=== PATIENT | female | born 1995 | race Caucasian/White ===

== ENCOUNTER 2016-04-16 18:03 | Observation (INO) ==
--- NOTE | 2016-04-16 18:33 | OB/GYN Progress Note ---
Date of Encounter: 04/16/16 Time of Encounter: 18:31 - Assessment and Plan (1) 37 weeks gestation of Current Visit: Yes Status: Acute Patient is a at 37 weeks here with lower back and pelvic pain. She is not regularly mary carmen on the monitor, her water has not broken and she has made no change. Baby looks very good on the monitor. Patient will be discharged home to follow up with her primary AUTOMOTIVE HEAVY MECHANIC. (2) Back pain affecting in third trimester Current Visit: No Status: Acute Subjective - Subjective Principal diagnosis: 37 week labor eval Interval history: Ms Light is a 20yo female at 37 weeks who presents with lower back and pelvic pain. Patient reports that today she has had cramping and pain in her lower back and pelvis. Pain is worse with walking or standing. She reports pressure and always feeling like she has to pee. She reports lots of mucous discharge this morning but no fluid loss. Reports good movement, SOB with walking, and chronic constipation. Yesterday she says that she didn't feel well and had lots of nausea and vomiting but that has resolved. Patient denies headache, vision changes, chest pain or burning with urination. Patient reports no complications with this . She was last seen in the office 04/13/16 and at that time she was 1cm dilated, 50% effaced. I examined this patient and my medical decision-making was reviewed with the CLIENT RETENTION SPECIALIST/PA/Advanced Practice Nurse/Resident Physician. I agree with the documented findings, disposition and treatment plan as described except to the extent set forth below. Antepartum ROS: movement normal, contractions, no loss of fluid, no vaginal bleeding Objective - Exam FHR: auscultation normal Auscultation: bilateral: normal Abdomen: Present: normal appearance, soft, gravid Cervical dilation: 1cm, posterior Cervix effacement: 50%
== END 2016-04-16 18:48 | disposition home or self-care (01) ==
LOC: 1NENULAB
PROVIDERS: ADMIT Obstetrics & Gynecology; ATTEND Obstetrics & Gynecology

== ENCOUNTER 2016-04-30 00:05 | Inpatient (IN) ==
[~2016-04-30 00:05] MED LIST: Famotidine 20 MG/2 ML VIAL IVP PRN; Metoclopramide 10 MG/2 ML VIAL IVP PRN; Ondansetron 4 MG/2 ML VIAL IVP PRN
--- NOTE | 2016-04-30 00:13 | OB/GYN History & Physical ---
Date of Encounter: 05/01/16 Time of Encounter: 00:09 Assessment and Plan (1) Breech presentation of fetus Status: Acute FHT monitoring NPO, IVF plan for Qualifiers: Fetus number: single or unspecified fetus Qualified Code(s): O32.1XX0 - Maternal care for breech presentation, not applicable or unspecified (2) 38 weeks gestation of Status: Acute History of Present Illness Chief complaint: contractions HPI: Ms. Light is a 20 year old female 38.6 week BRANDON 05/07/16 who presents c/ o of contractions. Pt states contractions started late afternoon/early this evening. At this time they were very irregular and spaced out. Since that time contractions started becoming more frequent. is complicated by breech presentation, which is confirmed by US. Pt denies vaginal discharge, bleeding, or loss of fluids. Dr. Jacobs pt, recieved care Past Med Surg Social Fam HX - Past Medical History Medical history: migraine Psychiatric history: anxiety - Past Surgical History Surgical History: no surgical history - Social History Smoking Status: Never smoker Smokeless Tobacco Status: No Alcohol use: none Drug use: none - Family History Mother Adopted: No Family Member Ethnicity: Non- Living Status: Still Living Hx Family Cardiac Disorders: Yes Hx Family Respiratory Disorders: No Hx Family Cancer: No Hx Family GI Disorders: No Hx Family Genitourinary Disorders: No Hx Family Endocrine Disorder: No Hx Family Musculoskeletal Disorders: No Hx Family Neuromuscular Disorders: No Hx Family Neurologic Disorders: No Hx Family HEENT Disorders: No Hx Family Autoimmune Disorders: No Hx Family Reproductive Disorders: No Hx Family Psychosocial Disorders: No Hx Family Medical Disorders: No Obstetrical History - Pregnancies : 1 Para: 0 - History/Complications History/Complications: breech presentation of current HepB - HIV - Treponema - Rubella, varicella immune screening- Medications and Allergies Qyn004/Iron Car/FA/Om3/Dha/Epa [One-A-Day 1 Dha Sfgl] 1 each PO DAILY 09/28/15 [History] Ondansetron ODT [Zofran ODT] 4 mg SL Q6HR PRN #8 tab.rapdis 12/06/15 [Rx] Zantac 150 mg PO DAILY 04/16/16 [History] Breast Pump [BREAST PUMP] 1 each .ROUTE AD #1 each 05/02/16 [Rx] Docusate [Colace] 100 mg PO BID #60 capsule 05/02/16 [Rx] Ibuprofen [Motrin] 600 mg PO Q6HR PRN #60 tablet 05/02/16 [Rx] Lanolin [Lansinoh] 1 appl TP TID PRN #0 oint...g. 05/02/16 [Rx] OxyCODONE/APAP 5/325 [Percocet 5/325 MG] 1 each PO Q4HR PRN #30 tablet 05/02/16 [Rx] Simethicone [Gas-X] 80 mg PO TID PRN #0 tab.chew 05/02/16 [Rx] Allergies azithromycin [From Zithromax] Adverse Reaction (Verified 04/30/16 01:34) Hives clarithromycin [From Biaxin] Adverse Reaction (Verified 04/30/16 01:34) Hives Review of System OB All systems PM: reviewed and no additional remarkable complaints except as stated Exam - Constitutional Constitutional: well developed, well nourished, no acute distress, average body habitus - HEENT HEENT: EOMI, Mucus Membranes Moist - Neck Neck exam: full ROM - Lungs Respiratory exam: CTAB - Cardiovascular Cardiovascular exam: RRR, +S1, +S2 - Abdomen Abdomen: Present: bowel sounds normal, gravid - Extremities Extremities exam: warm - Uterus Uterus exam: Present: normal size, normal contour Results Result Diagrams: 05/01/16 03:10 All other labs normal. - VTE Reasons for not Prescribing Prophylaxis: Treatment not Indicated - Low risk for VTE
[2016-04-30] MEDS ORDERED: Ringers Solution, Lactated 1,000 ML IVC SCH ×2 (00:15→05:45)
--- NOTE | 2016-04-30 00:34 | Anesthesia Evaluation PreOp ---
Date of Encounter: 04/30/16 Time of Encounter: 00:32 - Past History Planned Operation: Primary Csection Cardiac History: Denies any Significant Hx Pulmonary History: Denies Any Significant HX BOWLING BALL MARKER History: Denies Any Significant HX Other Medical History: GERD (Treats with zantac and tums PRN) Anesthesia History: No Prior Anesthetic Complications, Past Anesthesia (wisdom teeth extraction) : Yes Alcohol Use: none Drug use: none Medications and Allergies Zmm129/Iron Car/FA/Om3/Dha/Epa [One-A-Day 1 Dha Sfgl] 1 each PO DAILY 09/28/15 [History] Ondansetron ODT [Zofran ODT] 4 mg SL Q6HR PRN #8 tab.rapdis 12/06/15 [Rx] Zantac 150 mg PO DAILY 04/16/16 [History] Allergies azithromycin [From Zithromax] Adverse Reaction (Verified 12/06/15 19:55) Hives clarithromycin [From Biaxin] Adverse Reaction (Verified 12/06/15 19:55) Hives - Meds/Allergy Pre-op Review Medications Reviewed: Yes Allergies Reviewed: Yes Beta Blockers on Current Med List: No Anesthesia Exam BP 126/81 P 104 R 16 T 98.3 Height: 5'7" Weight: 76kg NPO (# of Hours): 4 Pain Scale: 2 Pain Scale Used: Numeric (1 - 10) - HEENT Pupil (Motor): Pupils equal Mallampati: II Teeth: Normal Oral Opening: Greater than 3 - BOWLING BALL MARKER BOWLING BALL MARKER Motor: Normal RUE, Normal LUE, Normal RLE, Normal LLE, Normal Face BOWLING BALL MARKER Sensory: Normal: RUE, LUE, RLE, LLE, Face - Cardiac Rhythm: Regular Murmur: None JVD: No Carotid Bruit: No - Pulmonary Breath Sounds: bilateral Clear Respiratory Effort: Symmetrical Anesthesia Assess/Plan ASA Score: 2 Modified Orly Scale for Level of Consciousness: Cooperative, oriented, and tranquil Anesthetic Plan: Regional Autologous Blood: Yes Monitoring Plan: Standard Monitors Recovery Plan: PACU
[2016-04-30] MEDS ORDERED: *HR* Morphine Sulfate/PF 5 MG/10 ML AMPUL ONE (04:47)
[2016-04-30] MEDS ORDERED: Dexamethasone 4 MG/ML VIAL ONE (05:09)
[2016-04-30] MEDS ORDERED: Ondansetron 4 MG/2 ML VIAL ONE (05:09)
[2016-04-30] MEDS ORDERED: Naloxone 0.4 MG/ML INJ IVP PRN ×3 (05:34→08:32)
[2016-04-30] MEDS ORDERED: *HR* HYDROmorphone (PF) 1 MG/ML SYRINGE IVP PRN (05:34)
[2016-04-30] MEDS ORDERED: *HR* Promethazine 25 MG/ML VIAL IVP PRN ×2 (05:34→08:32)
--- NOTE | 2016-04-30 05:34 | Anesthesia Procedures ---
Date of Encounter: 04/30/16 Time of Encounter: 04:50 Procedures: Anesthesia - Epidural/Spinal Patient ID/Chart reviewed: Yes Patient examined: Yes OB Eval: Gestational age: 39 OB Eval: : 1 OB Eval: Hx Para: 0 OB Eval: Contractions: Non-stressed pattern Consent Obtained: Yes Site Prep: Aseptic Technique, Sterile prep and drape, Povidone-Iodine 1% Patient position: upright Local Anesthetic: Lidocaine 1% Amount of Local Anesthetic used: 3 Interspace Used: L4-L5 Loss of Resistance (JAY): No Blood: No CSF: Yes Paresthesia: No Spinal Needle Gauge: 25 Spinal Dose: Marcaine 0.75 1.6ml Morphine 250mcg Procedure: Spinal administration 1st pass in upright position without any immediate noted complications. VSS throughout. Vitals + FHT's: see anesthesia record
[2016-04-30] MEDS ORDERED: *HR* Meperidine 25 MG/ML SYRINGE IVP PRN (05:49)
[2016-04-30] MEDS ORDERED: *HR* Oxytocin 10 UNIT/ML VIAL IM ONE (05:52)
--- NOTE | 2016-04-30 06:10 | OB/GYN Procedure Note ---
Section - Date of procedure: 04/30/16 Preop diagnosis: breech, other (Labor) Post-op diagnosis: same Procedure: section, primary low transverse Surgeon: Daryl Andrew Estimated blood loss (cc): 300 Anesthesiologist: Vidal Boyce Agriculture Research Director: Grabiel Rao Anesthesia Type: Spinal section complications: none Disposition: PACU - (s) A Infant Delivery Date: 04/30/16 Delivery Time: 05:18 Presentation: breech Gender: Female Viability: Viable Pounds: 7 Ounces: 6 Gram Weight: 3.345 kg at 1 minute: 8 at 5 minutes: 9 Shoulder Dystocia: not encountered Specimens collected: cord blood Placenta: spontaneous Cord: 3 umbilical vessels, nuchal reduced - Narrative Narrative: Patient is a 20-year-old primigravida female at 39 weeks gestation presents with contractions every 3-4 minutes worsening in intensity. She denies bleeding or leakage of fluid. She has known breech infant which was confirmed this evening. She was quite uncomfortable with contractions and given that she was doing the weeks' gestation request of Dr. Winslow and proceed with a section. Questions were answered and consent was obtained. Description of procedure: Patient was taken operating room where anesthesia was administered. She was prepped and draped in usual sterile fashion. Bladder was drained of clear urine. Scalpel was used to make a Pfannenstiel skin incision which was sharply taken down the rectus fascia. Rectus fascia was incised midline and rectus fascial incision was extended bilaterally. Rectus muscles were divided and peritoneum was entered bluntly. Bladder blade was placed and bladder flap was developed from the uterine segment. Scalpel was used to make a low transverse uterine incision this was extended bluntly bilaterally. Embryo is ruptured to clear fluid. Infant was delivered from debbi breech presentation and arms and head flexed throughout delivery. Cord was clamped and cut and was handed to nursery personnel were Apgars were found to be 8 at 1 minute and 9 at 5 minutes the weight was 7 lbs. 6 oz. Placenta was delivered manually without difficulty. Uterine cavity was massaged of all residual tissue. Uterus was closed with 0 Vicryl in a running lock stitch. Second imbricating layer was placed for the first obtain hemostasis. Fascia was closed with 0 Vicryl in a running manner. Skin edges reapproximated with 4-0 Vicryl. All sponge and instrument counts are correct patient was taken recovery in good condition.
[2016-04-30] MEDS ORDERED: *HR* OxyCODONE/APAP 5/325 TABLET PO PRN (06:29)
[2016-04-30] MEDS ORDERED: Ibuprofen 400 MG TABLET PO PRN ×2 (06:29→08:32)
[2016-04-30] MEDS ORDERED: *HR* Morphine 2 MG/ML SYRINGE IVP PRN ×2 (06:29→08:32)
[2016-04-30] MEDS ORDERED: Ondansetron 4 MG/2 ML VIAL IVP PRN ×3 (06:29→08:32)
--- NOTE | 2016-04-30 06:39 | Anesthesia Evaluation Post Op ---
Date of Encounter: 04/30/16 Time of Encounter: 06:35 - Vital Signs Vital Signs: BP 117/62 P 83 R 18 Spo2 98 T 97.8 - Lungs Lungs: Clear Ascult./Percussion - Airway Airway: Non-obstructed - Cardiovascular Regular Rate - Mental Status Mental Status: Alert & Oriented, Answers Appropriately - Pain Pain Scale: 0 Pain Scale used: Numeric (1 - 10) - Nausea Vomiting Nausea Vomiting: Not Present - Hydration Hydration: NPO, Landeros catheter - Discharge PostOp Status: Transfer Patient to floor
[2016-04-30] MEDS ORDERED: Oxytocin 20 units/ LR 1000 mL 20 UNIT/1,000 ML BAG IVC ONE (07:34)
[2016-04-30 08:20] LABS: Basophils # 0.1 K/mcL (0.0-0.2); Basophils % 0.2 %; Eosinophils # 0.1 K/mcL (0.0-0.6); Eosinophils % 0.4 %; Hematocrit 38.2 % (35.3-44.9); Hemoglobin 11.7 g/dL (11.5-15.4); Immature Granulocytes % 2.2 % (0-4); Lymphocytes # 2.3 K/mcL (0.6-4.6); Lymphocytes % 11.6 %; Mean Corpuscular HGB Conc 30.6 g/dL (31.6-35.5); Mean Corpuscular Hemoglobin 26.1 pg (28.0-33.3); Mean Corpuscular Volume 85.3 fL (83.0-100.0); Mean Platelet Volume 11.5 fL (9.4-12.4); Monocytes # 1.9 K/mcL (0.0-1.3); Monocytes % 9.6 %; Neutrophils # 15.3 K/mcL (1.6-8.9); Platelet Count 233 K/mcL (140-400); Red Blood Count 4.48 M/mcL (3.82-4.97); Red Cell Distribution Width 16.3 % (11.5-14.5)
[2016-04-30] MEDS ORDERED: Metoclopramide 10 MG/2 ML VIAL IVP PRN (08:32)
[2016-04-30] MEDS ORDERED: Oxytocin 20 units/ LR 1000 mL 20 UNIT/1,000 ML BAG IV SCH ×2 (08:32)
[2016-04-30] MEDS ORDERED: Rho Immune Globulin 1,500 UNIT SYRINGE IM ONE (08:32)
[2016-04-30] MEDS ORDERED: Sennosides 8.6 MG TABLET PO PRN (08:32)
[2016-04-30] MEDS: *HR* OxyCODONE/APAP 5/325 TABLET PO PRN ×2 (14:51→20:10)
[2016-04-30] MEDS: Ibuprofen 600 MG TABLET PO PRN (21:57)
[2016-05-01] MEDS ORDERED: Ringers Solution, Lactated 1,000 ML ONE (00:39)
[2016-05-01 03:34] LABS: Basophils # 0.1 K/mcL (0.0-0.2); Basophils % 0.3 %; Eosinophils # 0.1 K/mcL (0.0-0.6); Eosinophils % 0.4 %; Hemoglobin 10.6 g/dL (11.5-15.4); Immature Granulocytes % 1.2 % (0-4); Lymphocytes # 1.8 K/mcL (0.6-4.6); Lymphocytes % 9.4 %; Mean Corpuscular HGB Conc 31.2 g/dL (31.6-35.5); Mean Corpuscular Hemoglobin 25.6 pg (28.0-33.3); Mean Corpuscular Volume 82.1 fL (83.0-100.0); Mean Platelet Volume 10.8 fL (9.4-12.4); Monocytes # 2.1 K/mcL (0.0-1.3); Monocytes % 11.2 %; Neutrophils # 14.9 K/mcL (1.6-8.9); Platelet Count 189 K/mcL (140-400); Red Blood Count 4.14 M/mcL (3.82-4.97); Red Cell Distribution Width 15.9 % (11.5-14.5); Segmented Neutrophils % 77.5 %
[2016-05-01] MEDS: *HR* OxyCODONE/APAP 5/325 TABLET PO PRN ×3 (04:58→19:42)
[2016-05-01] MEDS: Ibuprofen 600 MG TABLET PO PRN ×3 (04:59→18:35)
[2016-05-01] MEDS ORDERED: Lanolin 7 G OINT...G. TP PRN (06:25)
[2016-05-01] MEDS: Prenatal Vit/FA 1 EACH TABLET PO SCH (08:17)
--- NOTE | 2016-05-01 09:18 | OB/GYN Progress Note ---
Date of Encounter: 05/01/16 Time of Encounter: 09:16 - Assessment and Plan (1) Status post primary low transverse section Current Visit: Yes Status: Acute Continue routine postop/ care possible discharge home tomorrow (2) Breast feeding status of mother Current Visit: Yes Status: Acute support prn Subjective - Subjective Principal diagnosis: Postop/ day 1 Interval history: Patient was a primary c/s for breech presentation. Patient is breast feeding female . Patient denies any pain at this time. Patient reports +Flatus. Patient reports: appetite normal, voiding normally, pain well controlled, ambulating normally [place]: doing well, nursing well Objective - Vital Signs Latest vital signs: Vital Signs Temp Pulse Resp BP Pulse Ox 05/01/16 08:00 16 05/01/16 07:50 98.0 F 90 16 106/64 97 05/01/16 06:42 98.2 F 90 16 97 05/01/16 00:34 16 05/01/16 00:33 97.6 F 84 16 110/68 04/30/16 20:03 98.1 F 83 16 122/72 99 04/30/16 17:30 16 04/30/16 17:05 98.4 F 73 16 121/71 97 04/30/16 11:30 98.5 F 85 16 125/66 97 04/30/16 10:30 98.5 F 90 16 125/79 96 04/30/16 09:33 16 04/30/16 09:30 98.8 F 100 16 116/64 96 Intake and Output 04/30/16 05/01/16 05/01/16 23:59 07:59 15:59 Intake Total 1000 / 1000 Output Total 1250 / 1250 1700 / 1700 Balance -1250 / -1250 -1700 / -1700 1000 / 1000 Intake: IV Fluids 1000 / 1000 Output: Catheter 1250 / 1250 1700 / 1700 Other: Weight 69.3 kg Patient Weight 05/01/16 23:59 Weight 69.3 kg - Exam Lungs: bilateral: normal Chest: Normal S1, Normal S2 Extremities: Present: normal Abdomen: Present: normal appearance, soft, gravid Incision: Present: normal, dry, intact, dressed (medipore dressing) Uterus: Present: normal, firm Fundal Height: 2 (U/2) Comments: light lochia, no blood clots noted. - Labs Labs: Laboratory Results - last 24 hr 05/01/16 03:10 WBC 19.2 H RBC 4.14 Hgb 10.6 L Hct 34.0 L MCV 82.1 L MCH 25.6 L MCHC 31.2 L RDW 15.9 H Plt Count 189 MPV 10.8 Immature Gran % 1.2 Seg Neutrophils % 77.5 Lymphocytes % 9.4 Monocytes % 11.2 Eosinophils % 0.4 Basophils % 0.3 Neutrophils # 14.9 H Lymphocytes # 1.8 Monocytes # 2.1 H Eosinophils # 0.1 Basophils # 0.1
[2016-05-01] MEDS: Simethicone 80 MG TAB.CHEW PO PRN (10:36)
[2016-05-02] MEDS: Ibuprofen 600 MG TABLET PO PRN ×3 (00:49→13:20)
[2016-05-02] MEDS: *HR* OxyCODONE/APAP 5/325 TABLET PO PRN ×2 (02:15→08:35)
[2016-05-02 08:10] VITALS: BP 116/79
[2016-05-02] MEDS: Simethicone 80 MG TAB.CHEW PO PRN (08:35)
[2016-05-02] MEDS: Prenatal Vit/FA 1 EACH TABLET PO SCH (08:35)
[2016-05-02] MEDS ORDERED: Ondansetron ODT 4 MG TAB.RAPDIS SL PRN (09:47)
--- NOTE | 2016-05-02 10:20 | Discharge Summary ---
Date of Encounter: 05/02/16 Time of Encounter: 10:19 - Discharge Diagnosis (1) Breast feeding status of mother Priority: Secondary Status: Acute (2) Status post primary low transverse section Priority: Primary Status: Acute Comments: Pt meeting post-op milestones. Complains of nausea, but able to tolerate po - Discharge Medications Prescriptions: OxyCODONE/APAP 5/325 [Percocet 5/325 MG] 1 each PO Q4HR PRN #30 tablet PRN Reason: Moderate pain 4-6 Ibuprofen [Motrin] 600 mg PO Q6HR PRN #60 tablet PRN Reason: Cramping Docusate [Colace] 100 mg PO BID #60 capsule Home Medications: Qkv453/Iron Car/FA/Om3/Dha/Epa [One-A-Day 1 Dha Sfgl] 1 each PO DAILY 09/28/15 [History] Ondansetron ODT [Zofran ODT] 4 mg SL Q6HR PRN #8 tab.rapdis 12/06/15 [Rx] Zantac 150 mg PO DAILY 04/16/16 [History] Breast Pump [BREAST PUMP] 1 each .ROUTE AD #1 each 05/02/16 [Rx] Docusate [Colace] 100 mg PO BID #60 capsule 05/02/16 [Rx] Ibuprofen [Motrin] 600 mg PO Q6HR PRN #60 tablet 05/02/16 [Rx] Lanolin [Lansinoh] 1 appl TP TID PRN #0 oint...g. 05/02/16 [Rx] OxyCODONE/APAP 5/325 [Percocet 5/325 MG] 1 each PO Q4HR PRN #30 tablet 05/02/16 [Rx] Simethicone [Gas-X] 80 mg PO TID PRN #0 tab.chew 05/02/16 [Rx] Allergies/Adverse Reactions: Allergies azithromycin [From Zithromax] Adverse Reaction (Verified 04/30/16 01:34) Hives clarithromycin [From Biaxin] Adverse Reaction (Verified 04/30/16 01:34) Hives Data Procedures and tests throughout hospitalization: Laboratory Tests 04/30/16 05/01/16 00:28 03:10 WBC 20.2 H 19.2 H RBC 4.48 4.14 Hgb 11.7 10.6 L Hct 38.2 34.0 L MCV 85.3 82.1 L MCH 26.1 L 25.6 L MCHC 30.6 L 31.2 L RDW 16.3 H 15.9 H Plt Count 233 189 MPV 11.5 10.8 Immature Gran % 2.2 1.2 Seg Neutrophils % 76.0 77.5 Lymphocytes % 11.6 9.4 Monocytes % 9.6 11.2 Eosinophils % 0.4 0.4 Basophils % 0.2 0.3 Neutrophils # 15.3 H 14.9 H Lymphocytes # 2.3 1.8 Monocytes # 1.9 H 2.1 H Eosinophils # 0.1 0.1 Basophils # 0.1 0.1 Date of admission: 04/30/16 00:05 Primary care physician: PCP REN Discharging clinician: Yessenia Rascon Anticipated date of discharge: 05/02/16 - Patient Status Disposition: Home, Self-Care Condition: Good Functional capacity at discharge: independent ambulation Overall status at discharge: patient is back to baseline - Discharge Instructions Follow Up With: REN,PCP [Primary Care Provider] - Daryl Andrew MD [Partnered Physician] - - Diet and Activity Activity: increase activity as tolerated, resume usual activities as tolerated Diet: regular diet Hospital Course Reason for admission: active labor, section Delivery: section Episiotomy: none Laceration: none Other procedures: none complications: none Discharge diagnosis: IUP at term delivered baby: female Hospital course: Section - Date of procedure: 04/30/16 Preop diagnosis: breech, other (Labor) Post-op diagnosis: same Procedure: section, primary low transverse Surgeon: Daryl Andrew Estimated blood loss (cc): 300 Anesthesiologist: Vidal Boyce Human Resources Project Coordinator: Grabiel Rao Anesthesia Type: Spinal section complications: none Disposition: PACU - Infant (s) Infant A Delivery Date: 04/30/16 Infant Delivery Time: 05:18 Presentation: breech Gender: Female Viability: Viable Pounds: 7 Ounces: 6 Gram Weight: 3.345 kg at 1 minute: 8 at 5 minutes: 9 Shoulder Dystocia: not encountered Specimens collected: cord blood Placenta: spontaneous Cord: 3 umbilical vessels, nuchal reduced Time Attestation: Total time spent providing and/or coordinating discharge services: Time Spent: Less than 30 minutes - VTE Reasons for not Prescribing Prophylaxis: Treatment not Indicated - Low risk for VTE Documentation of Mechanical Device: Intermittent pneumatic compression device Exam - Constitutional Vitals: Temp Pulse Resp BP Pulse Ox 97.9 F 76 16 116/79 98 05/02/16 08:09 05/02/16 08:09 05/02/16 08:09 05/02/16 08:09 05/02/16 08:09 General appearance IM: A&O X 3, no acute distress - Respiratory Respiratory exam: Present: CTAB. Absent: respiratory distress - Cardiovascular Cardiovascular exam IM: Present: RRR, +S1, +S2. Absent: irregular rhythm - GI/Abdominal GI/Abdominal exam IM: soft Incision: normal, dry, intact - Uterine Tone: Firm Uterus Position: 2 Fingers Below Umbilicus - Extremities Exam Extremities exam IM: Present: normal inspection - Neurological Exam Neurological exam: normal gait, oriented X3 - Psychiatric Additional comments: reports good mood
== END 2016-05-02 13:50 | disposition home or self-care (01) | DRG 540 ==
LOC: 1NENULAB → 1NENUOBS 08:32
PROVIDERS: ADMIT Obstetrics & Gynecology; ATTEND Obstetrics & Gynecology

== ENCOUNTER 2019-03-22 16:03 | Observation (INO) ==
[2019-03-22 18:03] LABS: Basophils % 0.3 %; Eosinophils # 0.1 K/mcL (0.0-0.6); Eosinophils % 0.5 %; Hemoglobin 14.4 g/dL (11.5-15.4); Immature Granulocytes % 0.7 % (0-4); Lymphocytes # 1.9 K/mcL (0.6-4.6); Lymphocytes % 18.6 %; Mean Corpuscular HGB Conc 34.3 g/dL (31.6-35.5); Mean Corpuscular Hemoglobin 30.1 pg (28.0-33.3); Mean Corpuscular Volume 87.9 fL (83.0-100.0); Mean Platelet Volume 9.8 fL (9.4-12.4); Monocytes # 0.7 K/mcL (0.0-1.3); Monocytes % 6.8 %; Neutrophils # 7.6 K/mcL (1.6-8.9); Platelet Count 273 K/mcL (140-400); Red Blood Count 4.78 M/mcL (3.82-4.97); Red Cell Distribution Width 12.9 % (11.5-14.5); Segmented Neutrophils % 73.1 %; White Blood Count 10.3 K/mcL (4.3-11.1)
[2019-03-22 18:17] LABS: Blood Urea Nitrogen 8 mg/dL (6-20); Calcium 9.9 mg/dL (8.6-10.3); Carbon Dioxide 22 mEq/L (23-29); Chloride 103 mEq/L (98-107); Glucose 76 mg/dL (70-105); Osmolality,Calculated 279 (280-300); Potassium 3.7 mEq/L (3.5-5.1); Sodium 136 mEq/L (136-145)
[2019-03-22] MEDS ORDERED: Metoclopramide 10 MG/2 ML VIAL IVP STA (18:31)
[2019-03-22] MEDS ORDERED: 0.9 % Sodium Chloride 1,000 ML IVC ONE (18:31)
[2019-03-22 19:13] LABS: Bilirubin,Urine Negative (Negative); Blood,Urine Negative (Negative); Clarity,Urine Clear (Clear); Color,Urine Yellow (Yellow); Glucose,Urine (UA) Normal (Normal); Ketones,Urine >=160 mg/dL (Negative); Leukocyte Esterase,Urine Negative (Negative); Nitrite,Urine Negative (Negative); Protein,Urine Trace mg/dL (Neg-Trace); Specific Gravity,Urine 1.028 (1.010-1.025); Urobilinogen,Urine Normal (Normal)
[2019-03-22 19:16] LABS: BUN/Creatinine Ratio 18 (6-26); eGFR For African Americans > 60 (> 60); eGFR For Non-African Americans > 60 (> 60)
[2019-03-22] MEDS ORDERED: Acetaminophen 325 MG TABLET PO ONE (22:41)
[2019-03-23] MEDS ORDERED: Scopolamine Patch 1.5 MG PATCH.TD72 TD ONE (00:47)
[2019-03-23] MEDS ORDERED: 0.9 % Sodium Chloride 1,000 ML IVC ONE (00:48)
[2019-03-23] MEDS: *HR* Promethazine 25 MG/ML VIAL IVP PRN ×2 (01:28→09:35)
[2019-03-23] MEDS ORDERED: Naloxone 0.4 MG/ML INJ IVP PRN (06:57)
[2019-03-23 10:03] LABS: Hematocrit 36.8 % (35.3-44.9); Mean Corpuscular HGB Conc 34.2 g/dL (31.6-35.5); Mean Corpuscular Hemoglobin 30.4 pg (28.0-33.3); Mean Corpuscular Volume 88.7 fL (83.0-100.0); Mean Platelet Volume 10.3 fL (9.4-12.4); Platelet Count 256 K/mcL (140-400); Red Blood Count 4.15 M/mcL (3.82-4.97); White Blood Count 7.1 K/mcL (4.3-11.1)
[2019-03-23 10:16] LABS: Hemoglobin 12.6 g/dL (11.5-15.4)
[2019-03-23 10:24] LABS: BUN/Creatinine Ratio 16 (6-26); Blood Urea Nitrogen 7 mg/dL (6-20); Calcium 8.9 mg/dL (8.6-10.3); Carbon Dioxide 23 mEq/L (23-29); Chloride 105 mEq/L (98-107); Glucose 106 mg/dL (70-105); Osmolality,Calculated 280 (280-300); Potassium 3.5 mEq/L (3.5-5.1); Sodium 136 mEq/L (136-145); eGFR For African Americans > 60 (> 60); eGFR For Non-African Americans > 60 (> 60)
[2019-03-23] MEDS: Metoclopramide 10 MG/2 ML VIAL IVP SCH ×3 (15:04→22:57)
[2019-03-23] MEDS: Ringers Solution, Lactated 1,000 ML IVC SCH (15:26)
[2019-03-23] MEDS: Pyridoxine (B-6) 50 MG TABLET PO SCH ×2 (16:26→19:38)
[2019-03-23] MEDS: Acetaminophen 325 MG TABLET PO PRN (16:26)
[2019-03-23] MEDS ORDERED: Metoclopramide 10 MG/2 ML VIAL IVP SCH (18:00)
[2019-03-24] MEDS: Pyridoxine (B-6) 50 MG TABLET PO SCH ×2 (02:24→10:30)
[2019-03-24] MEDS: Ringers Solution, Lactated 1,000 ML IVC SCH (02:24)
[2019-03-24] MEDS: Metoclopramide 10 MG/2 ML VIAL IVP SCH ×2 (05:11→14:15)
[2019-03-24 07:37] VITALS: BP 108/66
[2019-03-24] MEDS ORDERED: Prenatal Vit/FA 1 EACH TABLET PO SCH (09:00)
[2019-03-24] MEDS: Acetaminophen 325 MG TABLET PO PRN (14:22)
== END 2019-03-24 14:32 | disposition home or self-care (01) ==
LOC: EMEROOARM 16:03 → 3BNU 16:03
PROVIDERS: ADMIT Family Medicine; ATTEND Family Medicine

== ENCOUNTER 2019-04-01 16:59 | Observation (INO) ==
[2019-04-01] MEDS ORDERED: 0.9 % Sodium Chloride 1,000 ML IVC ONE (17:21)
[2019-04-01] MEDS ORDERED: Metoclopramide 10 MG/2 ML VIAL IVP ONE (17:34)
[2019-04-01] MEDS ORDERED: PYRIDOXINE IVPB ONE (17:45)
[2019-04-01] MEDS ORDERED: SODIUM CHLORIDE 0.9% IVPB ONE (17:45)
[2019-04-01 18:02] LABS: Basophils % 0.2 %; Eosinophils % 0.3 %; Hematocrit 40.1 % (35.3-44.9); Hemoglobin 13.4 g/dL (11.5-15.4); Immature Granulocytes % 0.4 % (0-4); Lymphocytes # 1.5 K/mcL (0.6-4.6); Lymphocytes % 16.2 %; Mean Corpuscular HGB Conc 33.4 g/dL (31.6-35.5); Mean Corpuscular Hemoglobin 30.6 pg (28.0-33.3); Mean Corpuscular Volume 91.6 fL (83.0-100.0); Mean Platelet Volume 9.9 fL (9.4-12.4); Monocytes # 0.7 K/mcL (0.0-1.3); Neutrophils # 7.2 K/mcL (1.6-8.9); Platelet Count 266 K/mcL (140-400); Red Blood Count 4.38 M/mcL (3.82-4.97); Red Cell Distribution Width 13.1 % (11.5-14.5); Segmented Neutrophils % 75.9 %; White Blood Count 9.5 K/mcL (4.3-11.1)
[2019-04-01 18:20] LABS: Alanine Aminotransferase 8 Units/L (7-52); Albumin 4.6 g/dL (3.5-5.7); Albumin/Globulin Ratio 1.9 (1.1-2.2); Alkaline Phosphatase 35 Units/L (34-104); Aspartate Amino Transferase 11 Units/L (13-39); BUN/Creatinine Ratio 23 (6-26); Bilirubin,Total 0.4 mg/dL (0.3-1.0); Blood Urea Nitrogen 13 mg/dL (6-20); Calcium 9.9 mg/dL (8.6-10.3); Carbon Dioxide 26 mEq/L (23-29); Chloride 103 mEq/L (98-107); Globulin 2.4 g/dL (2.4-3.5); Glucose 98 mg/dL (70-105); Lipase 19 Units/L (11-82); Osmolality,Calculated 288 (280-300); Potassium 4.1 mEq/L (3.5-5.1); Sodium 139 mEq/L (136-145); eGFR For African Americans > 60 (> 60); eGFR For Non-African Americans > 60 (> 60)
[2019-04-01 18:21] LABS: Albumin 4.5 g/dL (3.5-5.7); Albumin/Globulin Ratio 1.9 (1.1-2.2); Bilirubin,Direct 0.1 mg/dL (0.0-0.2); Bilirubin,Indirect 0.3 mg/dL (0.0-1.0); Bilirubin,Total 0.4 mg/dL (0.3-1.0); Globulin 2.4 g/dL (2.4-3.5); Total Protein 6.9 g/dL (6.4-8.9)
[2019-04-01] MEDS ORDERED: D5% in 0.9% NACL 1,000 ML IVC SCH (18:30)
[2019-04-01 19:20] LABS: Bilirubin,Urine Negative (Negative); Blood,Urine Negative (Negative); Clarity,Urine Clear (Clear); Color,Urine Yellow (Yellow); Glucose,Urine (UA) Normal (Normal); Ketones,Urine 15 mg/dL (Negative); Leukocyte Esterase,Urine Negative (Negative); Nitrite,Urine Negative (Negative); Protein,Urine Negative (Neg-Trace); Specific Gravity,Urine 1.022 (1.010-1.025); Urobilinogen,Urine Normal (Normal)
[2019-04-01] MEDS ORDERED: *HR* Promethazine 25 MG/ML VIAL IVP ONE (19:39)
[2019-04-01] MEDS ORDERED: Naloxone 0.4 MG/ML INJ IVP PRN (21:31)
[2019-04-01] MEDS ORDERED: 0.9 % Sodium Chloride 1,000 ML IVC SCH (21:45)
[2019-04-01] MEDS: *HR* Promethazine 25 MG/ML VIAL IVP PRN (22:42)
[2019-04-01] MEDS: D5% in 0.9% NACL 1,000 ML IVC SCH (22:43)
[2019-04-02] MEDS: Metoclopramide 10 MG/2 ML VIAL IVP PRN ×3 (02:39→20:59)
[2019-04-02 04:22] LABS: Hematocrit 33.2 % (35.3-44.9); Mean Corpuscular HGB Conc 34.3 g/dL (31.6-35.5); Mean Corpuscular Volume 90.2 fL (83.0-100.0); Mean Platelet Volume 9.7 fL (9.4-12.4); Platelet Count 217 K/mcL (140-400); Red Blood Count 3.68 M/mcL (3.82-4.97); Red Cell Distribution Width 13.2 % (11.5-14.5); White Blood Count 7.7 K/mcL (4.3-11.1)
[2019-04-02 04:27] LABS: Hemoglobin 11.4 g/dL (11.5-15.4)
[2019-04-02 04:45] LABS: BUN/Creatinine Ratio 20 (6-26); Blood Urea Nitrogen 10 mg/dL (6-20); Calcium 8.3 mg/dL (8.6-10.3); Carbon Dioxide 25 mEq/L (23-29); Chloride 108 mEq/L (98-107); Glucose 100 mg/dL (70-105); Osmolality,Calculated 287 (280-300); Potassium 3.6 mEq/L (3.5-5.1); Sodium 139 mEq/L (136-145); eGFR For African Americans > 60 (> 60); eGFR For Non-African Americans > 60 (> 60)
[2019-04-02] MEDS ORDERED: Acetaminophen 325 MG TABLET PO PRN (08:54)
[2019-04-02] MEDS: *HR* Promethazine 25 MG/ML VIAL IVP PRN ×3 (08:59→22:22)
[2019-04-02] MEDS: D5% in 0.9% NACL 1,000 ML IVC SCH (09:48)
[2019-04-02] MEDS ORDERED: Acetaminophen/Butalbital/CaffeineTABLET PO ONE (13:58)
[2019-04-02] MEDS ORDERED: D5% in 0.9% NACL 1,000 ML IVC SCH (15:15)
[2019-04-02] MEDS ORDERED: Pyridoxine (B-6) 100 MG/ML VIAL IVP ONE (17:34)
[2019-04-02] MEDS ORDERED: Scopolamine Patch 1.5 MG PATCH.TD72 TD SCH (20:30)
[2019-04-03] MEDS: D5 IVPB SCH ×2 (02:13→10:32)
[2019-04-03] MEDS: LACTATED RINGERS IVPB SCH ×2 (02:13→10:32)
[2019-04-03] MEDS: PYRIDOXINE IVPB SCH ×2 (02:13→10:32)
[2019-04-03 04:46] LABS: Hematocrit 32.9 % (35.3-44.9); Mean Corpuscular HGB Conc 33.4 g/dL (31.6-35.5); Mean Corpuscular Hemoglobin 30.7 pg (28.0-33.3); Mean Corpuscular Volume 91.9 fL (83.0-100.0); Mean Platelet Volume 9.9 fL (9.4-12.4); Platelet Count 206 K/mcL (140-400); Red Blood Count 3.58 M/mcL (3.82-4.97); White Blood Count 7.8 K/mcL (4.3-11.1)
[2019-04-03 05:01] LABS: BUN/Creatinine Ratio 10 (6-26); Blood Urea Nitrogen 4 mg/dL (6-20); Calcium 8.4 mg/dL (8.6-10.3); Carbon Dioxide 23 mEq/L (23-29); Chloride 109 mEq/L (98-107); Glucose 97 mg/dL (70-105); Magnesium 1.8 mg/dL (1.6-2.6); Osmolality,Calculated 281 (280-300); Potassium 3.3 mEq/L (3.5-5.1); Sodium 137 mEq/L (136-145); eGFR For African Americans > 60 (> 60); eGFR For Non-African Americans > 60 (> 60)
[2019-04-03 06:51] VITALS: BP 109/73
[2019-04-03] MEDS ORDERED: Prenatal Vit/FA 1 EACH TABLET PO SCH (09:00)
[2019-04-03] MEDS: *HR* Promethazine 25 MG/ML VIAL IVP PRN (10:28)
== END 2019-04-03 12:32 | disposition home or self-care (01) ==
LOC: 2ANU 16:59 → EMEROOARM 16:59 → SUATTDRO 21:52 → 2ANU 22:20
PROVIDERS: ADMIT Student in an Organized Health Care Education/Training Program; ATTEND Internal Medicine

== ENCOUNTER → 2019-07-12 23:06 | Observation (INO) ==
[2019-07-12 21:25] LABS: Bilirubin,Urine Negative (Negative); Blood,Urine Negative (Negative); Clarity,Urine Clear (Clear); Color,Urine Yellow (Yellow); Glucose,Urine (UA) Normal (Normal); Ketones,Urine Negative (Negative); Leukocyte Esterase,Urine Negative (Negative); Nitrite,Urine Negative (Negative); Protein,Urine Trace mg/dL (Neg-Trace); Urobilinogen,Urine Normal (Normal)
== END | disposition home or self-care (01) ==
LOC: 1NENULAB
PROVIDERS: ADMIT Student in an Organized Health Care Education/Training Program; ATTEND Student in an Organized Health Care Education/Training Program

== ENCOUNTER → 2019-09-05 19:55 | Observation (INO) ==
[2019-09-05 19:35] LABS: Bilirubin,Urine Negative (Negative); Blood,Urine Negative (Negative); Clarity,Urine Clear (Clear); Color,Urine Light-Yellow (Yellow); Glucose,Urine (UA) 300 mg/dL (Normal); Ketones,Urine Trace mg/dL (Negative); Leukocyte Esterase,Urine Negative (Negative); Nitrite,Urine Negative (Negative); Protein,Urine Trace mg/dL (Neg-Trace); Specific Gravity,Urine 1.026 (1.010-1.025); Urobilinogen,Urine Normal (Normal)
== END | disposition home or self-care (01) ==
LOC: 1NENULAB
PROVIDERS: ADMIT Obstetrics & Gynecology; ATTEND Obstetrics & Gynecology

== ENCOUNTER → 2019-09-18 21:29 | Observation (INO) | END | disposition home or self-care (01) | LOC: 1NENULAB | PROVIDERS: ADMIT Obstetrics & Gynecology; ATTEND Obstetrics & Gynecology ==

== ENCOUNTER 2019-10-09 16:06 | Observation (INO) ==
[2019-10-09] MEDS ORDERED: Ringers Solution, Lactated 1,000 ML IVC SCH (16:45)
[2019-10-09] MEDS ORDERED: Ringers Solution, Lactated 1,000 ML IVC ONE (17:00)
[2019-10-09 17:40] LABS: Basophils % 0.2 %; Eosinophils # 0.1 K/mcL (0.0-0.6); Eosinophils % 0.3 %; Hematocrit 31.1 % (35.3-44.9); Hemoglobin 9.5 g/dL (11.5-15.4); Lymphocytes # 1.9 K/mcL (0.6-4.6); Lymphocytes % 11.4 %; Mean Corpuscular HGB Conc 30.5 g/dL (31.6-35.5); Mean Corpuscular Hemoglobin 23.3 pg (28.0-33.3); Mean Corpuscular Volume 76.4 fL (83.0-100.0); Mean Platelet Volume 10.7 fL (9.4-12.4); Monocytes # 1.4 K/mcL (0.0-1.3); Monocytes % 8.6 %; Neutrophils # 12.5 K/mcL (1.6-8.9); Nucleated Red Blood Cells 0.4 /100 WBC (0); Platelet Count 272 K/mcL (140-400); Red Blood Count 4.07 M/mcL (3.82-4.97); Red Cell Distribution Width 15.9 % (11.5-14.5); Segmented Neutrophils % 77.5 %; White Blood Count 16.2 K/mcL (4.3-11.1)
[2019-10-09] MEDS ORDERED: Acetaminophen 325 MG TABLET PO ONE (17:43)
[2019-10-09 17:53] LABS: Bacteria,Urine Few per hpf (None-Few); Bilirubin,Urine Negative (Negative); Blood,Urine Negative (Negative); Clarity,Urine Turbid (Clear); Color,Urine Yellow (Yellow); Glucose,Urine (UA) 150 mg/dL (Normal); Ketones,Urine Trace mg/dL (Negative); Leukocyte Esterase,Urine Negative (Negative); Mucus,Urine Few per lpf (None-Few); Nitrite,Urine Negative (Negative); Protein,Urine 30 mg/dL (Neg-Trace); Specific Gravity,Urine 1.026 (1.010-1.025); Squamous Epithelial Cell,Urine Few per hpf (None-Few); Urobilinogen,Urine Normal (Normal)
[2019-10-09 17:55] LABS: BUN/Creatinine Ratio 23 (6-26); Blood Urea Nitrogen 10 mg/dL (6-20); Calcium 8.4 mg/dL (8.6-10.3); Carbon Dioxide 21 mEq/L (23-29); Chloride 106 mEq/L (98-107); Glucose 94 mg/dL (70-105); Osmolality,Calculated 277 (280-300); Potassium 3.7 mEq/L (3.5-5.1); Sodium 134 mEq/L (136-145); eGFR For African Americans > 60 (> 60); eGFR For Non-African Americans > 60 (> 60)
[2019-10-09] MEDS ORDERED: Ringers Solution, Lactated 1,000 ML ONE (18:49)
== END 2019-10-09 20:06 | disposition home or self-care (01) ==
LOC: 1NENULAB
PROVIDERS: ADMIT Registered Nurse; ATTEND Registered Nurse

== ENCOUNTER → 2019-10-17 01:32 | Observation (INO) | END | disposition home or self-care (01) | LOC: 1NENULAB | PROVIDERS: ADMIT Obstetrics & Gynecology; ATTEND Obstetrics & Gynecology ==

== ENCOUNTER 2019-10-22 05:55 | Inpatient (IN) ==
[2019-10-22] MEDS ORDERED: Metoclopramide 10 MG/2 ML VIAL IVP PRN ×2 (05:57→13:35)
[2019-10-22] MEDS ORDERED: Azithromycin 500 MG in 0.9 % Sodium Chloride 250 ML IVPB ONE (05:57)
[2019-10-22] MEDS ORDERED: Famotidine 20 MG/2 ML VIAL IVP PRN (05:57)
[2019-10-22] MEDS ORDERED: Naloxone 0.4 MG/ML INJ IVP PRN (05:57)
[2019-10-22] MEDS ORDERED: Ringers Solution, Lactated 1,000 ML IVC SCH (06:00)
[2019-10-22] MEDS ORDERED: Ringers Solution, Lactated 1,000 ML IVC ONE (06:01)
[2019-10-22 06:47] LABS: Basophils # 0.1 K/mcL (0.0-0.2); Basophils % 0.4 %; Eosinophils # 0.2 K/mcL (0.0-0.6); Hematocrit 31.5 % (35.3-44.9); Hemoglobin 9.4 g/dL (11.5-15.4); Immature Granulocytes % 4.4 % (0-4); Lymphocytes # 2.3 K/mcL (0.6-4.6); Lymphocytes % 14.2 %; Mean Corpuscular HGB Conc 29.8 g/dL (31.6-35.5); Mean Corpuscular Hemoglobin 23.4 pg (28.0-33.3); Mean Corpuscular Volume 78.4 fL (83.0-100.0); Mean Platelet Volume 10.7 fL (9.4-12.4); Monocytes # 1.8 K/mcL (0.0-1.3); Monocytes % 11.3 %; Neutrophils # 11.1 K/mcL (1.6-8.9); Nucleated Red Blood Cells 0.3 /100 WBC (0); Platelet Count 246 K/mcL (140-400); Red Blood Count 4.02 M/mcL (3.82-4.97); Segmented Neutrophils % 68.7 %; White Blood Count 16.2 K/mcL (4.3-11.1)
[2019-10-22 07:49] LABS: Alanine Aminotransferase 8 Units/L (7-52); Aspartate Amino Transferase 15 Units/L (13-39); BUN/Creatinine Ratio 18 (6-26); Blood Urea Nitrogen 7 mg/dL (6-20); Lactate Dehydrogenase 182 Units/L (140-271); eGFR For African Americans > 60 (> 60); eGFR For Non-African Americans > 60 (> 60)
[2019-10-22] MEDS ORDERED: *HR* Morphine Sulfate/PF 10 MG/10 ML AMPUL ONE (08:00)
[2019-10-22] MEDS ORDERED: *HR* FentaNYL (PF) 100 MCG/2 ML VIAL ONE (08:00)
[2019-10-22] MEDS ORDERED: *HR* Oxytocin 10 UNIT/ML VIAL IM ONE ×2 (08:01→08:42)
[2019-10-22] MEDS ORDERED: *HR* Phenylephrine 10 MG/ML VIAL ONE (08:01)
[2019-10-22] MEDS ORDERED: Acetaminophen IV 1,000 MG/100 ML INFUS..BTL ONE (08:22)
[2019-10-22 08:24] LABS: Amphetamine Screen,Urine Negative ng/mL (Cutoff=1000); Barbiturate Screen,Urine Negative ng/mL (Cutoff=200); Benzodiazepines Screen,Urine Negative ng/mL (Cutoff=200); Cannabinoid Screen,Urine Negative ng/mL (Cutoff = 50); Cocaine Screen,Urine Negative ng/mL (Cutoff= 300); Opiate Screen,Urine Negative ng/mL (Cutoff=300); Phencyclidine Screen,Urine Negative ng/mL (Cutoff=25)
[2019-10-22] MEDS ORDERED: Ondansetron 4 MG/2 ML VIAL ONE (08:34)
[2019-10-22] MEDS ORDERED: *HR* OxyCODONE Immed Rel 5 MG TABLET PO PRN (08:50)
[2019-10-22] MEDS ORDERED: *HR* Promethazine 25 MG/ML VIAL IVP PRN (08:50)
[2019-10-22] MEDS ORDERED: Ketorolac 30 MG/ML VIAL ONE (09:10)
[2019-10-22] MEDS ORDERED: Oxytocin 20 units/ LR 1000 mL 20 UNIT/1,000 ML BAG IVC SCH (13:35)
[2019-10-22] MEDS ORDERED: Simethicone 80 MG TAB.CHEW PO PRN (13:35)
[2019-10-22] MEDS ORDERED: Rho Immune Globulin 1,500 UNIT SYRINGE IM ONE (13:35)
[2019-10-22] MEDS ORDERED: Sennosides 8.6 MG TABLET PO PRN (13:35)
[2019-10-22] MEDS: *HR* OxyCODONE/APAP 5/325 TABLET PO PRN ×2 (14:13→21:10)
[2019-10-22] MEDS: Ondansetron 4 MG/2 ML VIAL IVP PRN ×2 (14:13→22:33)
[2019-10-22] MEDS: cephALEXin 500 MG CAPSULE PO SCH ×2 (15:31→20:19)
[2019-10-22] MEDS: metroNIDAZOLE 500 MG TABLET PO SCH ×2 (15:31→20:19)
[2019-10-22] MEDS: Ibuprofen 600 MG TABLET PO SCH (18:37)
[2019-10-22] MEDS: Acetaminophen 325 MG TABLET PO PRN (20:19)
[2019-10-23] MEDS: Ibuprofen 600 MG TABLET PO SCH ×4 (00:32→16:57)
[2019-10-23] MEDS: *HR* OxyCODONE/APAP 5/325 TABLET PO PRN ×4 (03:21→16:57)
[2019-10-23] MEDS: Acetaminophen 325 MG TABLET PO PRN (05:43)
[2019-10-23 08:12] VITALS: BP 116/80
[2019-10-23] MEDS: cephALEXin 500 MG CAPSULE PO SCH ×2 (08:27→15:10)
[2019-10-23] MEDS: metroNIDAZOLE 500 MG TABLET PO SCH ×2 (08:27→15:10)
[2019-10-23 08:29] LABS: Basophils # 0.1 K/mcL (0.0-0.2); Basophils % 0.3 %; Eosinophils # 0.2 K/mcL (0.0-0.6); Hematocrit 30.4 % (35.3-44.9); Hemoglobin 9.2 g/dL (11.5-15.4); Immature Granulocytes % 1.9 % (0-4); Lymphocytes % 13.3 %; Mean Corpuscular HGB Conc 30.3 g/dL (31.6-35.5); Mean Corpuscular Volume 79.2 fL (83.0-100.0); Monocytes # 1.7 K/mcL (0.0-1.3); Monocytes % 11.1 %; Platelet Count 212 K/mcL (140-400); Red Blood Count 3.84 M/mcL (3.82-4.97); Red Cell Distribution Width 18.9 % (11.5-14.5); Segmented Neutrophils % 72.4 %; White Blood Count 15.2 K/mcL (4.3-11.1)
[2019-10-23] MEDS ORDERED: Prenatal Vit/FA 1 EACH TABLET PO SCH (09:00)
== END 2019-10-23 17:00 | disposition home or self-care (01) | DRG 539 ==
LOC: 1NENULAB 05:55 → 1NENUOBS 12:02
PROVIDERS: ADMIT Obstetrics & Gynecology; ATTEND Obstetrics & Gynecology